=== PATIENT | female | born 1995 | race African-American/Black ===

== ENCOUNTER 2020-06-12 01:12 | Emergency (ER) | payer BC, SELFPAY ==
--- NOTE | ~2020-06-12 | CT_ITS ---
EXAMINATION: CT abdomen pelvis w con INDICATION: Abdominal pain TECHNIQUE: Computed tomographic images of the abdomen and pelvis were obtained after the administrati on of 100 cc of Omnipaque 350 intravenous contrast. The dose-length product (DLP) was 428.98 mGy-cm. Automated exposure control and iterative reconstruction technique were employed. COMPARISON: None available FINDINGS: The lung bases are clear. The heart size is normal. Subtle low attenuation of the liver adj acent to the ligamentum teres is consistent with focal steatosis. The spleen, pancreas, gallbladder, and adrenal glands are normal. The kidneys are unremarkable. No pathologically enlarged abdominal or pelvic lymph nodes are identified. There is no free intraperitoneal gas or evidence of bowel obstruct ion. The appendix is normal. IMPRESSION: 1. No CT correlate for the patient's symptoms. Reviewed, dictated and finalized at location A.
[2020-06-12 01:15] VITALS: BP 169/105; PULSE 79; RESP 18; TEMP 36.2; O2SAT 100
[2020-06-12 02:03] LABS: Basophils Percent Auto 0.4 % (0.2-1.2); Eosinophils Absolute Auto 0.1 K/mm3 (0-0.3); Eosinophils Percent Auto 1.4 % (0-4.4); Hematocrit 35.7 % (37.0-47.0); Hemoglobin 11.4 g/dL (12.0-15.0); Immature Granulocyte Absolute 0.02 K/mm3 (0.00-0.031); Immature Granulocyte Percent A 0.2 % (0-0.5); Lymphocytes Absolute Auto 2.76 K/mm3 (0.9-3.2); Lymphocytes Percent Auto 32.4 % (18.3-44.2); Mean Corpuscular HGB Conc 31.9 g/dl (32-36); Mean Corpuscular Hemoglobin 27.1 pg (26-34); Mean Corpuscular Volume 84.8 fl (80-100); Mean Platelet Volume 9.9 fl (7.4-10.4); Monocytes Absolute Auto 0.6 K/mm3 (0.1-0.6); Monocytes Percent Auto 6.8 % (2.6-8.5); Neutrophils Percent Auto 58.8 % (45.5-73.1); Platelet Count Result 467 k/mm3 (150-375); Red Blood Count 4.21 M/mm3 (4.2-5.4); Red Cell Distribution Width 13.7 % (11.5-14.5); White Blood Count 8.5 K/mm3 (4.5-10.0)
[2020-06-12 02:13] LABS: Alanine Aminotransferase 27 U/L (4-35); Albumin Level 4.6 g/dL (3.5-5.1); Alkaline Phosphatase 66 U/L (38-126); Anion Gap 11.3 mmol/L (7-16); Aspartate Amino Transferase 27 U/L (14-36); Bilirubin,Total 0.4 mg/dL (0.2-1.3); Blood Urea Nitrogen 16 mg/dL (7-17); Calcium 9.2 mg/dL (8.4-10.2); Carbon Dioxide 33 mmol/L (22-30); Chloride 95 mmol/L (98-107); Estimated CRCL calculation 79 ml/min; Estimated Glomerular Filt Rate > 60; Glucose 72 mg/dL (65-105); Lipase 272 U/L (23-300); Potassium 3.3 mmol/L (3.4-5.0); Sodium 136 mmol/L (137-145)
[2020-06-12 02:21] LABS: Add Urine Microscopic? YES; Appearance Urine Clear (Clear); Bilirubin Urine Negative (Negative); Blood Urine Negative (Negative); Color Urine Yellow (Yellow); Glucose Urine UA Negative (Negative); Ketones Urine Negative (Negative); Leukocyte Esterase Ur Negative LEU/UL (Negative); Mucus Urine Rare /lpf; Nitrate Urine Negative (Negative); Protein Urine Negative (Negative); RBC Urine 0-2 /hpf (0-2); Specific Grav Ur 1.018 (1.001-1.035); Squamous Epithelial Cell Urine Few /hpf (Few); Urobilinogen Urine Negative mg/dL (<2.0)
--- NOTE | 2020-06-12 03:08 | ED.ABDPAIN ---
HPI - Abdominal Pain General Chief Complaint: Abdominal Pain Stated Complaint: abdominal pain Time Seen by Provider: 06/12/20 01:58 History of Present Illness HPI narrative: Patient presents with upper abdominal pain for 5 days. She does not suspect anything she ate. She gives it a 9 out of 10. She has nausea but no vomiting. She does not have diarrhea. No fever chills or sweats. She is never had abdominal surgery. She thought she might be but the test here is negative. She has hypertension and takes prescription medicine for that. She works as a private animal care attendant. She is not had any surgeries. MD elicited complaint: abdominal pain Pertinent past history: other (Hypertension) Onset (ago): day(s) Pain Consistency: constant Location: LUQ and RUQ Severity: moderate Radiation: none Exacerbating factors: nothing Relieving factors: nothing Related Data Home Medications Medication Instructions Recorded Confirmed amlodipine 5 mg PO DAILY 06/12/20 losartan DAILY 06/12/20 Allergies Allergy/AdvReac Type Severity Reaction Status Date / Time prochlorperazine Allergy Severe throat Verified 06/12/20 02:23 closing Review of Systems Review of Systems: Narrative: CONSTITUTIONAL: Denies fever, chills, or sweats. EYES: Denies visual changes, redness, or discharge. ENT: Denies rhinorrhea, congestion, sore throat, or otalgia. CARDIOVASCULAR: Denies chest pain, palpitations, or edema. RESPIRATORY: Denies cough or dyspnea. GASTROINTESTINAL: She has abdominal pain, nausea, but not vomiting, or diarrhea. GENITOURINARY: Denies dysuria or hematuria. SKIN: Denies rash or itching. MUSCULOSKELETAL: Denies back pain, joint pain, or myalgia. NEUROLOGIC: Denies headache, numbness, or weakness. All systems reviewed & are unremarkable except as noted in HPI and below PMFSH Past Medical History Medical History (Updated 06/12/20 @ 04:08 by Maggie Garnica MD) Hypertension Surgical History Surgical History No pertinent past surgical history Exam Narrative: Exam Narrative: GENERAL: Well-appearing, well-nourished, and in no acute distress. Thick jeanette in extensions. HEAD: Normocephalic, atraumatic. EYES: PERRLA and EOMI. ENT: Nares clear, no rhinorrhea or epistaxis. Mucous membranes moist. NECK: Supple. CHEST: Clear to auscultation. No respiratory distress. HEART: Regular rate and rhythm. No murmur heard. Normal peripheral pulses. ABDOMEN: Soft, nontender, nondistended, normal active bowel sounds. EXTREMITIES: Normal range of motion. No edema. SKIN: Warm, dry, no rash. NEURO: No focal deficits. Alert and oriented x3. PSYCH: Normal mood and affect. Const: General: no acute distress Course Reevaluation(s) Reevaluation #1: Went into the room to tell the patient the results of her CAT scan. Told her I would give her a prescription for Pepcid in case it was a little gastritis or stomach ulcer. She can follow-up with Dr. Figueroa next week to see if that is helping her at all. And I gave her a note to go back to work tomorrow. Date: 06/12/20 Time: 04:12 Vital Signs Vital signs: Vital Signs Temperature 97.2 F L 06/12/20 01:15 Pulse Rate 79 06/12/20 01:15 Respiratory Rate 18 06/12/20 01:15 Blood Pressure 169/105 H 06/12/20 01:15 Pulse Oximetry 100 06/12/20 01:15 Temperature 97.2 F L 06/12/20 01:15 Pulse Rate 79 06/12/20 01:15 Respiratory Rate 18 06/12/20 01:15 Blood Pressure 169/105 H 06/12/20 01:15 Pulse Oximetry 100 06/12/20 01:15 MDM - Abdominal Pain Differential Diagnosis Differential diagnosis: Likely abdominal pain Medical Records Attestation: I reviewed the patient's medical records. Lab Data Attestation: I reviewed the patient's lab results. Result diagrams: 06/12/20 01:41 06/12/20 01:41 Labs: Lab Results 06/12/20 06/12/20 06/12/20 Range/Units 01:41 01:41 01:41 WBC
[2020-06-12] MEDS: SODIUM CHLORIDE 0.9% IV 1,000 ML 999 ML IV CONT (03:58)
[2020-06-12] MEDS: ONDANSETRON INJ 4 MG/2 ML VIAL IV PUSH (03:59)
[2020-06-12] MEDS: FAMOTIDINE 20 MG/2 ML VIAL IV PUSH (03:59)
[2020-06-12 05:12] VITALS: BP 158/102; PULSE 86; RESP 16; O2SAT 95
== END 2020-06-12 05:13 | disposition home or self-care (01) ==
PROVIDERS: Emergency Provider Emergency Medicine
DX: R10.84 Generalized abdominal pain (principal); I10 Essential (primary) hypertension
CPT/HCPCS: 36415; 74177; 80053; 81001; 81025; 83690; 85025; 96361; 96374; 96375; 99284; J2405; J7030; Q9967